=== PATIENT | female | born 1960 | race Caucasian/White ===

== ENCOUNTER 2022-10-12 14:00 | Outpatient (RCR) | payer OTHER, SELFPAY ==
[2022-10-08 13:03] VITALS: BP 150/74
== END 2022-11-05 07:46 | disposition home or self-care (01) ==
LOC: HO.PT 14:00
PROVIDERS: PCP Family Medicine; Visit Provider Otolaryngology
DX: H81.4 Vertigo of central origin (principal)
CPT/HCPCS: 95992; 97161; 97535